=== PATIENT | male | born 1955 | race Caucasian/White ===

== ENCOUNTER → 2024-06-12 06:19 | Outpatient (REF) | payer MEDICARE, OTHER, SELFPAY ==
[2024-06-12] MEDS: LEXISCAN 0.4 MG IV (08:26)
[2024-06-12] MEDS: FLUSH (NSS) 1 FLUSH IV (08:26)
== END ==
LOC: RCS 06:19
PROVIDERS: ATTENDING PHYSICIAN Internal Medicine Cardiovascular Disease; FAMILY PHYSICIAN Internal Medicine
DX: R60.0 Localized edema (principal); R06.09 Other forms of dyspnea
CPT/HCPCS: 78452; 93017; A9500; J2785

== ENCOUNTER → 2024-06-26 11:59 | Outpatient (REF) | payer MEDICARE, OTHER, SELFPAY | LOC: RCS 11:59 | PROVIDERS: ATTENDING PHYSICIAN Internal Medicine Cardiovascular Disease; FAMILY PHYSICIAN Internal Medicine | DX: R60.0 Localized edema (principal) | CPT/HCPCS: 93306 ==

== ENCOUNTER → 2024-07-24 12:29 | Outpatient (REF) | payer MEDICARE, OTHER, SELFPAY | LOC: RAD 12:29 | PROVIDERS: ATTENDING PHYSICIAN Internal Medicine Cardiovascular Disease; FAMILY PHYSICIAN Internal Medicine | DX: R60.0 Localized edema (principal) | CPT/HCPCS: 93922; 93925 ==

== ENCOUNTER → 2024-10-09 14:27 | Outpatient (REF) | payer MEDICARE, OTHER, SELFPAY | LOC: HWRAD 14:27 | PROVIDERS: ATTENDING PHYSICIAN Specialist; FAMILY PHYSICIAN Internal Medicine; REFERRING PHYSICIAN Internal Medicine Cardiovascular Disease | DX: N18.32 Chronic kidney disease, stage 3b (principal) | CPT/HCPCS: 76770 ==